=== PATIENT | male | born 1960 | race American Indian/Alaskan Native ===

== ENCOUNTER 2019-01-10 09:42 | Outpatient (CLI) | payer OTHER ==
--- NOTE | 2019-01-10 10:22 | XRay Report ---
CERVICAL SPINE, 3 VIEWS INDICATION: CERVICALGIA. Neck pain COMPARISON: None. IMPRESSION: Normal alignment. 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 The facet j oints are unremarkable. No acute osseous, bone lesion or soft tissue abnormality. Signer Name: Fuad Grajeda Jr, MD Signed: 01/10/2019 10:18 AM Workstation Name: [id number]
== END 2019-01-10 09:43 | disposition home or self-care (01) ==
LOC: SPVIMAG 09:42
PROVIDERS: ATTEND Family Medicine
DX: M47.812 Spondylosis without myelopathy or radiculopathy, cervical region (principal)
CPT/HCPCS: 72040